=== PATIENT | female | born 1995 | race Caucasian/White ===

== ENCOUNTER 2022-08-16 18:55 | Emergency (ER) | payer OTHER ==
[2022-08-16 19:36] VITALS: BP 112/66; PULSE 89; RESP 20; TEMP 98.6; BMI 26.4
[2022-08-16] MEDS ORDERED: DEXAMETHASONE SOD PHOSPHATE 10 MG/1 ML VIAL PO ONE (20:35)
[2022-08-16] MEDS ORDERED: ACETAMINOPHEN 500 MG TABLET (FP) PO ONE (20:35)
[2022-08-16] MEDS ORDERED: ACETAMINOPHEN 500 MG TABLET (FP) ONE (20:37)
[2022-08-16] MEDS ORDERED: DEXAMETHASONE SOD PHOSPHATE 10 MG/1 ML VIAL ONE (20:38)
== END 2022-08-16 20:45 | disposition home or self-care (01) ==
LOC: JER 18:55 → JERFT 18:55
DX: J06.9 Acute upper respiratory infection, unspecified (principal); Z20.822 Contact with and (suspected) exposure to COVID-19
CPT/HCPCS: 0241U-QW; 99283-25; J1100